=== PATIENT | female | born 1970 | race Two or more races ===

== ENCOUNTER 2019-01-04 19:45 | Emergency (ER) | payer MEDICAID ==
[~2019-01-04] VITALS: Ht 157.5 cm; Wt 70.3 kg
[2019-01-04 21:20] VITALS: BP 152/78
[2019-01-04] MEDS ORDERED: methylPREDNISolone SOD SUCC 125 MG/2 ML VL IM ONE (21:30)
[2019-01-04] MEDS ORDERED: cefTRIAXone SOD 1,000 MG VL IM ONE (21:30)
[2019-01-04] MEDS ORDERED: LIDOCAINE 1% HCL (LOCAL ANESTH.) INJ 20ML MDV ONE (21:39)
[2019-01-04] MEDS ORDERED: LIDOCAINE 1% HCL (LOCAL ANESTH.) INJ 20ML MDV ID ONE (22:30)
== END 2019-01-04 22:07 | disposition home or self-care (01) ==
LOC: ER 19:45
DX: J06.9 Acute upper respiratory infection, unspecified (principal); Z87.891 Personal history of nicotine dependence
CPT/HCPCS: 96372; 99283; J0696; J2001; J2930